=== PATIENT | male | born 1970 | race Hispanic/Latino ===

== ENCOUNTER 2023-04-19 13:02 | Inpatient (IN) | payer SELFPAY ==
[2023-04-18 20:00] VITALS: BP 152/96; PULSE 94; RESP 18; TEMP 98.4; O2SAT 100
[~2023-04-19] VITALS: Ht 172.7 cm; Wt 77.1 kg
[2023-04-19] MEDS ORDERED: KETOROLAC TROMETHAMINE 30 MG/ML VIAL IM STA (13:23)
[2023-04-19] MEDS ORDERED: Vancomycin IV 1 GM in SODIUM CHLORIDE 0.9% 250ML 250 ML IV ONE (13:30)
[2023-04-19] MEDS ORDERED: ACETAMINOPHEN 1000 MG/100 ML IV STA (13:35)
[2023-04-19] MEDS ORDERED: LACTATED RINGER'S 1,000 ML INJ ONE ×2 (13:45→15:15)
[2023-04-19] MEDS ORDERED: PIPERACILLIN/TAZOBACTAM 4.5 GM in SODIUM CHLORIDE 0.9% 100 ML IV ONE (13:45)
[2023-04-19 13:53] LABS: BASOPHILS % 0.2 % (0.0-1.0); EOSINOPHILS % 0.1 % (0.0-6.0); HEMATOCRIT 39.2 % (38.2-49.6); LYMPHOCYTES # (AUTO) 1.1 (1.0-3.2); LYMPHOCYTES % 6.8 % (18.0-39.1); MEAN CORPUSCULAR HEMOGLOBIN 32.7 pg (28-32); MEAN CORPUSCULAR HGB CONC 35.7 g/dL (31-35); MEAN CORPUSCULAR VOLUME 91.6 fL (81-99); NEUTROPHILS # (AUTO) 14.5 (2.1-6.9); NEUTROPHILS % 86.4 % (38.7-80.0); PLATELET COUNT 355 x10e3/uL (140-360); RED BLOOD COUNT 4.28 x10e6/uL (4.3-5.7); RED CELL DISTRIBUTION WIDTH 11.6 % (11.7-14.4)
[2023-04-19 14:10] LABS: ALBUMIN 2.8 g/dL (3.5-5.0); ALBUMIN/GLOBULIN RATIO 0.5 (0.8-2.0); CREATININE, SERUM 0.83 mg/dL (0.72-1.25); TOTAL PROTEIN 8.1 g/dL (6.5-8.1)
[2023-04-19] MEDS ORDERED: INSULIN REGULAR, HUMAN 100 UNIT/1 ML IV ONE (15:00)
[2023-04-19] MEDS ORDERED: ONDANSETRON HCL INJ 2MG/ML 2ML 2 MG/ML VIAL IV PRN (15:15)
[2023-04-19] MEDS ORDERED: SODIUM CHLORIDE 0.9% 1000ML 1,000 ML IV SCH (15:15)
[2023-04-19 16:15] VITALS: BP 129/81; PULSE 102; RESP 19; TEMP 99.7; O2SAT 98
[2023-04-19 16:19] VITALS: PULSE 85; RESP 20; O2SAT 98
[2023-04-19 16:23] LABS: CHOL/HDL RATIO 3.6 (3.9-4.7)
[2023-04-19 17:27] VITALS: BP 129/81; PULSE 85; RESP 20; TEMP 99.7; O2SAT 98
[2023-04-19 19:14] VITALS: PULSE 90; RESP 18; O2SAT 97
[2023-04-19 20:00] VITALS: BP 152/96; PULSE 94; RESP 18; TEMP 98.4; O2SAT 100
[2023-04-19] MEDS ORDERED: INSULIN LISPRO 100 UNIT/1 ML 3ML VIAL SQ SCH (21:00)
[2023-04-19] MEDS ORDERED: TETANUS/DIPHTHERIA TOX ADULT 0.5 ML SYR IM ONE (21:00)
[2023-04-19] MEDS ORDERED: DEXTROSE 50% SYRINGE 50 ML IV PRN (21:00)
[2023-04-19] MEDS: SODIUM CHLORIDE 0.9% 1000ML 1,000 ML IV SCH (21:36)
[2023-04-19] MEDS: KETOROLAC TROMETHAMINE 30 MG/ML VIAL IV PRN (21:37)
[2023-04-20] VITALS (9 sets, daily range): BP systolic 123–157; BP diastolic 69–91; PULSE 69–101; RESP 18–20; TEMP 97.7–100.5; O2SAT 94–98
[2023-04-20] MEDS: SODIUM CHLORIDE 0.9% 1000ML 1,000 ML IV SCH ×4 (02:41→21:17)
[2023-04-20 05:40] LABS: BASOPHILS % 0.3 % (0.0-1.0); EOSINOPHILS % 0.1 % (0.0-6.0); HEMATOCRIT 35.5 % (38.2-49.6); HEMOGLOBIN 12.5 g/dL (14.0-18.0); LYMPHOCYTES # (AUTO) 1.8 (1.0-3.2); LYMPHOCYTES % 11.8 % (18.0-39.1); MEAN CORPUSCULAR HEMOGLOBIN 32.3 pg (28-32); MEAN CORPUSCULAR HGB CONC 35.2 g/dL (31-35); MEAN CORPUSCULAR VOLUME 91.7 fL (81-99); MONOCYTES # (AUTO) 1.5 (0.2-0.8); MONOCYTES % 9.8 % (4.4-11.3); NEUTROPHILS # (AUTO) 11.6 (2.1-6.9); NEUTROPHILS % 77.4 % (38.7-80.0); PLATELET COUNT 326 x10e3/uL (140-360); RED BLOOD COUNT 3.87 x10e6/uL (4.3-5.7); RED CELL DISTRIBUTION WIDTH 11.2 % (11.7-14.4); WHITE BLOOD COUNT 15.03 x10e3/uL (4.8-10.8)
[2023-04-20] MEDS: Vancomycin IV 1 GM in SODIUM CHLORIDE 0.9% 250ML 250 ML IV SCH ×2 (05:48→16:53)
[2023-04-20 05:51] LABS: ALBUMIN 2.5 g/dL (3.5-5.0); ALBUMIN/GLOBULIN RATIO 0.6 (0.8-2.0); ANION GAP 14.5 mmol/L (8-16); BILIRUBIN,TOTAL 0.7 mg/dL (0.2-1.2); CALCIUM 8.3 mg/dL (8.4-10.2); CREATININE, SERUM 0.65 mg/dL (0.72-1.25); POTASSIUM 3.5 mmol/L (3.5-5.1); TOTAL PROTEIN 6.8 g/dL (6.5-8.1)
[2023-04-20] MEDS ORDERED: DEXTROSE 50% SYRINGE 50 ML IV PRN (08:00)
[2023-04-20] MEDS ORDERED: ACETAMINOPHEN 325 MG TAB PO PRN (09:00)
[2023-04-20] MEDS ORDERED: IOPAMIDOL 370 MG/ML 100 ML INFUS..BTL INJ ONE (09:19)
[2023-04-20] MEDS: INSULIN LISPRO 100 UNIT/1 ML 3ML VIAL SQ SCH ×2 (11:30→16:54)
[2023-04-20] MEDS: KETOROLAC TROMETHAMINE 30 MG/ML VIAL IV PRN (14:18)
[2023-04-20] MEDS ORDERED: INSULIN GLARGINE 100 UNITS/ML VIAL SQ SCH (21:00)
[2023-04-20] MEDS: CLINDAMYCIN HCL 150 MG CAP PO SCH (21:15)
[2023-04-20] MEDS: ATORVASTATIN 40 MG TAB PO SCH (21:16)
[2023-04-21] VITALS (7 sets, daily range): BP systolic 134–145; BP diastolic 82–92; PULSE 86–109; RESP 18–19; TEMP 98.4–99.8; O2SAT 95–100
[2023-04-21] MEDS: KETOROLAC TROMETHAMINE 30 MG/ML VIAL IV PRN ×3 (00:34→17:31)
[2023-04-21 05:59] LABS: BASOPHILS % 0.2 % (0.0-1.0); EOSINOPHILS # (AUTO) 0.1 (0.0-0.4); EOSINOPHILS % 0.4 % (0.0-6.0); HEMOGLOBIN 12.3 g/dL (14.0-18.0); LYMPHOCYTES # (AUTO) 1.9 (1.0-3.2); LYMPHOCYTES % 14.1 % (18.0-39.1); MEAN CORPUSCULAR HEMOGLOBIN 32.3 pg (28-32); MEAN CORPUSCULAR HGB CONC 35.1 g/dL (31-35); MEAN CORPUSCULAR VOLUME 91.9 fL (81-99); MONOCYTES # (AUTO) 1.3 (0.2-0.8); MONOCYTES % 9.5 % (4.4-11.3); NEUTROPHILS # (AUTO) 10.2 (2.1-6.9); NEUTROPHILS % 75.1 % (38.7-80.0); PLATELET COUNT 344 x10e3/uL (140-360); RED BLOOD COUNT 3.81 x10e6/uL (4.3-5.7); RED CELL DISTRIBUTION WIDTH 11.3 % (11.7-14.4); WHITE BLOOD COUNT 13.59 x10e3/uL (4.8-10.8)
[2023-04-21] MEDS: CLINDAMYCIN HCL 150 MG CAP PO SCH ×3 (06:34→21:48)
[2023-04-21 07:17] LABS: ALBUMIN 2.3 g/dL (3.5-5.0); ALBUMIN/GLOBULIN RATIO 0.5 (0.8-2.0); ANION GAP 13.3 mmol/L (8-16); BILIRUBIN,TOTAL 0.6 mg/dL (0.2-1.2); CALCIUM 8.3 mg/dL (8.4-10.2); CREATININE, SERUM 0.61 mg/dL (0.72-1.25); POTASSIUM 3.3 mmol/L (3.5-5.1); TOTAL PROTEIN 6.7 g/dL (6.5-8.1)
[2023-04-21] MEDS: INSULIN LISPRO 100 UNIT/1 ML 3ML VIAL SQ SCH ×3 (07:30→15:28)
[2023-04-21] MEDS ORDERED: POTASSIUM CHLORIDE 20 MEQ TAB CR PO ONE (08:30)
[2023-04-21] MEDS: Vancomycin IV 1 GM in SODIUM CHLORIDE 0.9% 250ML 250 ML IV SCH (10:09)
[2023-04-21] MEDS ORDERED: Vancomycin IV 1 GM in SODIUM CHLORIDE 0.9% 250ML 250 ML IV SCH (12:00)
[2023-04-21] MEDS ORDERED: ONDANSETRON HCL INJ 2MG/ML 2ML 2 MG/ML VIAL ONE (12:29)
[2023-04-21] MEDS ORDERED: DEXAMETHASONE SOD PHOS INJ 4 MG/ML SDV ONE (12:29)
[2023-04-21] MEDS ORDERED: LIDOCAINE HCL 2% LOCAL INJ 5 ML SDV VIAL INJ ONE (12:29)
[2023-04-21] MEDS ORDERED: PROPOFOL IV EMULSION 10 MG/ML 20 ML VIAL ONE (12:29)
[2023-04-21] MEDS ORDERED: SEVOFLURANE INHAL SOLN 250 ML PEN BTL ONE (12:29)
[2023-04-21] MEDS ORDERED: MIDAZOLAM HCL 2 MG/2 ML VIAL ONE (14:56)
[2023-04-21] MEDS ORDERED: FENTANYL CITRATE/PF 100MCG/2 ML INJ ONE (14:56)
[2023-04-21] MEDS ORDERED: BUPIVACAINE HCL 0.5% INJ 30 ML VIAL INJ ONE (15:45)
[2023-04-21] MEDS ORDERED: MUPIROCIN 2% OINT 22 GM TUBE ONE (15:45)
[2023-04-21] MEDS ORDERED: LIDOCAINE 1% W/EPINEPHRINE 20 ML VIAL ONE (15:45)
[2023-04-21] MEDS ORDERED: ACETAMINOPHEN 1000 MG/100 ML 100 ML IV ONE (17:09)
[2023-04-21] MEDS: SENNA-S TABLET PO SCH (17:32)
[2023-04-21] MEDS: LOSARTAN POTASSIUM 25 MG TAB PO SCH (17:33)
[2023-04-21] MEDS: ATORVASTATIN 40 MG TAB PO SCH (20:14)
[2023-04-21] MEDS ORDERED: SODIUM CHLORIDE 0.9% 250ML 250 ML ONE (20:20)
[2023-04-21] MEDS ORDERED: INSULIN GLARGINE 100 UNITS/ML VIAL SQ SCH (21:00)
[2023-04-21] MEDS: VANCOMYCIN 1.5 GM/300 ML 300 ML IV SCH (21:48)
[2023-04-22] VITALS (7 sets, daily range): BP systolic 133–158; BP diastolic 84–101; PULSE 73–87; RESP 17–20; TEMP 97.6–98.8; O2SAT 96–100
[2023-04-22 05:27] LABS: BASOPHILS % 0.1 % (0.0-1.0); HEMOGLOBIN 12.6 g/dL (14.0-18.0); LYMPHOCYTES # (AUTO) 1.1 (1.0-3.2); LYMPHOCYTES % 7.4 % (18.0-39.1); MEAN CORPUSCULAR HEMOGLOBIN 32.2 pg (28-32); MEAN CORPUSCULAR VOLUME 92.1 fL (81-99); MONOCYTES # (AUTO) 0.6 (0.2-0.8); MONOCYTES % 4.5 % (4.4-11.3); NEUTROPHILS # (AUTO) 12.3 (2.1-6.9); NEUTROPHILS % 87.1 % (38.7-80.0); PLATELET COUNT 421 x10e3/uL (140-360); RED BLOOD COUNT 3.91 x10e6/uL (4.3-5.7); RED CELL DISTRIBUTION WIDTH 11.3 % (11.7-14.4); WHITE BLOOD COUNT 14.17 x10e3/uL (4.8-10.8)
[2023-04-22 05:48] LABS: ALBUMIN 2.5 g/dL (3.5-5.0); ALBUMIN/GLOBULIN RATIO 0.5 (0.8-2.0); BILIRUBIN,TOTAL 0.6 mg/dL (0.2-1.2); CALCIUM 8.8 mg/dL (8.4-10.2); CREATININE, SERUM 0.67 mg/dL (0.72-1.25); TOTAL PROTEIN 7.5 g/dL (6.5-8.1)
[2023-04-22] MEDS: CLINDAMYCIN HCL 150 MG CAP PO SCH ×3 (05:48→23:46)
[2023-04-22] MEDS ORDERED: ONDANSETRON HCL 4 MG ORAL DISINTEGRATING TAB PO PRN (08:00)
[2023-04-22] MEDS ORDERED: MUPIROCIN 2% OINT 22 GM TUBE TOP PRN (08:00)
[2023-04-22] MEDS: VANCOMYCIN 1.5 GM/300 ML 300 ML IV SCH ×2 (08:41→23:30)
[2023-04-22] MEDS: LOSARTAN POTASSIUM 25 MG TAB PO SCH (08:41)
[2023-04-22] MEDS: INSULIN LISPRO 100 UNIT/1 ML 3ML VIAL SQ SCH ×5 (08:42→17:05)
[2023-04-22] MEDS: SENNA-S TABLET PO SCH (08:50)
[2023-04-22] MEDS: KETOROLAC TROMETHAMINE 30 MG/ML VIAL IV PRN ×2 (10:27→18:40)
[2023-04-22] MEDS: FAMOTIDINE 20 MG TAB PO SCH ×2 (10:33→17:04)
[2023-04-22] MEDS: ATORVASTATIN 40 MG TAB PO SCH (21:00)
[2023-04-22] MEDS: INSULIN GLARGINE 100 UNITS/ML VIAL SQ SCH (21:00)
[2023-04-23] MEDS: Morphine 4mg INJECTION 4 MG/ML INJ IV PRN ×2 (01:32→22:42)
[2023-04-23] MEDS: KETOROLAC TROMETHAMINE 30 MG/ML VIAL IV PRN ×2 (02:41→12:40)
[2023-04-23] MEDS: CLINDAMYCIN HCL 150 MG CAP PO SCH ×3 (06:01→20:33)
[2023-04-23 06:34] LABS: BASOPHILS # (AUTO) 0.1 (0.0-0.1); BASOPHILS % 0.4 % (0.0-1.0); EOSINOPHILS # (AUTO) 0.1 (0.0-0.4); EOSINOPHILS % 0.9 % (0.0-6.0); HEMOGLOBIN 12.6 g/dL (14.0-18.0); LYMPHOCYTES # (AUTO) 2.6 (1.0-3.2); LYMPHOCYTES % 21.4 % (18.0-39.1); MEAN CORPUSCULAR HEMOGLOBIN 31.9 pg (28-32); MEAN CORPUSCULAR VOLUME 91.1 fL (81-99); MONOCYTES # (AUTO) 1.4 (0.2-0.8); MONOCYTES % 11.7 % (4.4-11.3); NEUTROPHILS # (AUTO) 7.8 (2.1-6.9); NEUTROPHILS % 63.9 % (38.7-80.0); PLATELET COUNT 430 x10e3/uL (140-360); RED BLOOD COUNT 3.95 x10e6/uL (4.3-5.7); RED CELL DISTRIBUTION WIDTH 11.2 % (11.7-14.4)
[2023-04-23 06:56] LABS: ALBUMIN 2.4 g/dL (3.5-5.0); ALBUMIN/GLOBULIN RATIO 0.5 (0.8-2.0); ANION GAP 11.5 mmol/L (8-16); BILIRUBIN,TOTAL 0.5 mg/dL (0.2-1.2); CALCIUM 8.3 mg/dL (8.4-10.2); CREATININE, SERUM 0.64 mg/dL (0.72-1.25); POTASSIUM 3.5 mmol/L (3.5-5.1); TOTAL PROTEIN 6.9 g/dL (6.5-8.1)
[2023-04-23 07:19] VITALS: BP 133/93; PULSE 86; RESP 18; TEMP 97.5; O2SAT 100
[2023-04-23 08:22] VITALS: BP 128/95; PULSE 104; RESP 20; TEMP 97.7; O2SAT 100
[2023-04-23] MEDS: FAMOTIDINE 20 MG TAB PO SCH ×2 (08:26→16:59)
[2023-04-23] MEDS: LOSARTAN POTASSIUM 25 MG TAB PO SCH (08:27)
[2023-04-23] MEDS: VANCOMYCIN 1.5 GM/300 ML 300 ML IV SCH ×2 (08:28→20:32)
[2023-04-23] MEDS: INSULIN LISPRO 100 UNIT/1 ML 3ML VIAL SQ SCH ×6 (08:35→17:02)
[2023-04-23 08:39] VITALS: BP 128/95; PULSE 104; RESP 20; TEMP 97.7; O2SAT 100
[2023-04-23] MEDS: SENNA-S TABLET PO SCH (09:00)
[2023-04-23 11:25] VITALS: BP 134/85; PULSE 100; RESP 20; TEMP 97.9; O2SAT 100
[2023-04-23 16:03] VITALS: BP 133/80; PULSE 75; RESP 17; TEMP 98.8; O2SAT 99
[2023-04-23] MEDS: METFORMIN HCL 500 MG TAB CR PO SCH (16:58)
[2023-04-23 20:02] VITALS: BP 136/99; PULSE 105; RESP 20; TEMP 98.3; O2SAT 100
[2023-04-23] MEDS: ATORVASTATIN 40 MG TAB PO SCH (20:32)
[2023-04-23] MEDS: INSULIN GLARGINE 100 UNITS/ML VIAL SQ SCH (20:39)
[2023-04-24] VITALS (9 sets, daily range): BP systolic 135–146; BP diastolic 88–95; PULSE 85–107; RESP 18; TEMP 98–99.2; O2SAT 95–100
[2023-04-24] MEDS: KETOROLAC TROMETHAMINE 30 MG/ML VIAL IV PRN ×2 (01:50→12:36)
[2023-04-24] MEDS: CLINDAMYCIN HCL 150 MG CAP PO SCH (05:05)
[2023-04-24 05:38] LABS: BASOPHILS # (AUTO) 0.1 (0.0-0.1); BASOPHILS % 0.6 % (0.0-1.0); EOSINOPHILS # (AUTO) 0.2 (0.0-0.4); EOSINOPHILS % 1.7 % (0.0-6.0); HEMATOCRIT 39.8 % (38.2-49.6); HEMOGLOBIN 13.9 g/dL (14.0-18.0); LYMPHOCYTES # (AUTO) 2.7 (1.0-3.2); LYMPHOCYTES % 21.8 % (18.0-39.1); MEAN CORPUSCULAR HEMOGLOBIN 32.2 pg (28-32); MEAN CORPUSCULAR HGB CONC 34.9 g/dL (31-35); MEAN CORPUSCULAR VOLUME 92.1 fL (81-99); MONOCYTES # (AUTO) 1.3 (0.2-0.8); MONOCYTES % 10.9 % (4.4-11.3); NEUTROPHILS # (AUTO) 7.5 (2.1-6.9); NEUTROPHILS % 61.3 % (38.7-80.0); PLATELET COUNT 434 x10e3/uL (140-360); RED BLOOD COUNT 4.32 x10e6/uL (4.3-5.7); RED CELL DISTRIBUTION WIDTH 11.1 % (11.7-14.4); WHITE BLOOD COUNT 12.17 x10e3/uL (4.8-10.8)
[2023-04-24 06:16] LABS: ALBUMIN 2.6 g/dL (3.5-5.0); ALBUMIN/GLOBULIN RATIO 0.5 (0.8-2.0); ANION GAP 11.8 mmol/L (8-16); BILIRUBIN,TOTAL 0.4 mg/dL (0.2-1.2); CALCIUM 8.6 mg/dL (8.4-10.2); CREATININE, SERUM 0.7 mg/dL (0.72-1.25); POTASSIUM 3.8 mmol/L (3.5-5.1); TOTAL PROTEIN 7.5 g/dL (6.5-8.1)
[2023-04-24 06:29] LABS: INR 0.98; PROTHROMBIN TIME 13.2 seconds (11.9-14.5)
[2023-04-24] MEDS: VANCOMYCIN 1.5 GM/300 ML 300 ML IV SCH ×2 (08:55→21:28)
[2023-04-24] MEDS: METFORMIN HCL 500 MG TAB CR PO SCH ×2 (08:55→17:13)
[2023-04-24] MEDS: LOSARTAN POTASSIUM 25 MG TAB PO SCH (08:56)
[2023-04-24] MEDS: FAMOTIDINE 20 MG TAB PO SCH ×2 (08:56→16:51)
[2023-04-24] MEDS: SENNA-S TABLET PO SCH (09:00)
[2023-04-24] MEDS ORDERED: SODIUM CHLORIDE 0.9% 250ML 250 ML ONE (09:04)
[2023-04-24] MEDS: INSULIN LISPRO 100 UNIT/1 ML 3ML VIAL SQ SCH ×6 (09:05→16:57)
[2023-04-24] MEDS: INSULIN GLARGINE 100 UNITS/ML VIAL SQ SCH ×2 (09:12→21:41)
[2023-04-24] MEDS: CEFTRIAXONE 2 GM in SODIUM CHLORIDE 0.9% 100 ML IV SCH (12:46)
[2023-04-24] MEDS ORDERED: CLINDAMYCIN 600MG / 50ML 50 ML IV SCH (14:00)
[2023-04-24] MEDS ORDERED: Clindamycin INJ 150 MG/ML 600 MG Vial IM SCH (14:00)
[2023-04-24] MEDS ORDERED: ACETAMINOPHEN 325 MG TAB PO PRN (16:30)
[2023-04-24] MEDS: Morphine 4mg INJECTION 4 MG/ML INJ IV PRN (21:29)
[2023-04-24] MEDS: ATORVASTATIN 40 MG TAB PO SCH (21:29)
[2023-04-25] VITALS (11 sets, daily range): BP systolic 96–141; BP diastolic 71–92; PULSE 75–101; RESP 17–20; TEMP 97.7–98.8; O2SAT 97–100
[2023-04-25] MEDS: Morphine 4mg INJECTION 4 MG/ML INJ IV PRN ×5 (02:28→21:36)
[2023-04-25 05:23] LABS: BASOPHILS # (AUTO) 0.1 (0.0-0.1); BASOPHILS % 0.5 % (0.0-1.0); EOSINOPHILS # (AUTO) 0.3 (0.0-0.4); HEMATOCRIT 39.1 % (38.2-49.6); HEMOGLOBIN 13.6 g/dL (14.0-18.0); LYMPHOCYTES # (AUTO) 2.5 (1.0-3.2); LYMPHOCYTES % 19.6 % (18.0-39.1); MEAN CORPUSCULAR HEMOGLOBIN 31.6 pg (28-32); MEAN CORPUSCULAR HGB CONC 34.8 g/dL (31-35); MEAN CORPUSCULAR VOLUME 90.9 fL (81-99); MONOCYTES # (AUTO) 1.1 (0.2-0.8); MONOCYTES % 8.8 % (4.4-11.3); NEUTROPHILS # (AUTO) 8.4 (2.1-6.9); NEUTROPHILS % 65.1 % (38.7-80.0); PLATELET COUNT 463 x10e3/uL (140-360); RED CELL DISTRIBUTION WIDTH 11.3 % (11.7-14.4); WHITE BLOOD COUNT 12.85 x10e3/uL (4.8-10.8)
[2023-04-25 06:02] LABS: ALBUMIN 2.6 g/dL (3.5-5.0); ALBUMIN/GLOBULIN RATIO 0.5 (0.8-2.0); ANION GAP 12.7 mmol/L (8-16); BILIRUBIN,TOTAL 0.5 mg/dL (0.2-1.2); CALCIUM 8.5 mg/dL (8.4-10.2); CREATININE, SERUM 0.61 mg/dL (0.72-1.25); POTASSIUM 3.7 mmol/L (3.5-5.1); TOTAL PROTEIN 7.5 g/dL (6.5-8.1)
[2023-04-25] MEDS: INSULIN LISPRO 100 UNIT/1 ML 3ML VIAL SQ SCH ×6 (07:30→17:27)
[2023-04-25] MEDS ORDERED: CEPHALEXIN500 M1 PO (08:53)
[2023-04-25] MEDS: SENNA-S TABLET PO SCH (08:59)
[2023-04-25] MEDS: FAMOTIDINE 20 MG TAB PO SCH ×2 (08:59→17:24)
[2023-04-25] MEDS: METFORMIN HCL 500 MG TAB CR PO SCH ×3 (08:59→17:24)
[2023-04-25] MEDS: LOSARTAN POTASSIUM 25 MG TAB PO SCH (09:01)
[2023-04-25] MEDS: INSULIN GLARGINE 100 UNITS/ML VIAL SQ SCH ×2 (09:10→21:34)
[2023-04-25] MEDS: VANCOMYCIN 1.5 GM/300 ML 300 ML IV SCH ×2 (11:18→21:25)
[2023-04-25] MEDS: CEFTRIAXONE 2 GM in SODIUM CHLORIDE 0.9% 100 ML IV SCH (14:14)
[2023-04-25] MEDS: ATORVASTATIN 40 MG TAB PO SCH (21:25)
[2023-04-26] VITALS (9 sets, daily range): BP systolic 114–133; BP diastolic 74–91; PULSE 90–108; RESP 18–21; TEMP 97.1–98.7; O2SAT 97–100
[2023-04-26 05:32] LABS: BASOPHILS # (AUTO) 0.1 (0.0-0.1); BASOPHILS % 0.7 % (0.0-1.0); EOSINOPHILS # (AUTO) 0.3 (0.0-0.4); EOSINOPHILS % 2.5 % (0.0-6.0); HEMATOCRIT 38.8 % (38.2-49.6); HEMOGLOBIN 13.7 g/dL (14.0-18.0); LYMPHOCYTES # (AUTO) 2.1 (1.0-3.2); MEAN CORPUSCULAR HEMOGLOBIN 32.1 pg (28-32); MEAN CORPUSCULAR HGB CONC 35.3 g/dL (31-35); MEAN CORPUSCULAR VOLUME 90.9 fL (81-99); MONOCYTES % 9.5 % (4.4-11.3); NEUTROPHILS # (AUTO) 6.7 (2.1-6.9); NEUTROPHILS % 63.1 % (38.7-80.0); PLATELET COUNT 486 x10e3/uL (140-360); RED BLOOD COUNT 4.27 x10e6/uL (4.3-5.7); RED CELL DISTRIBUTION WIDTH 11.1 % (11.7-14.4); WHITE BLOOD COUNT 10.67 x10e3/uL (4.8-10.8)
[2023-04-26 05:51] LABS: ALBUMIN 2.6 g/dL (3.5-5.0); ALBUMIN/GLOBULIN RATIO 0.5 (0.8-2.0); ANION GAP 14.7 mmol/L (8-16); BILIRUBIN,TOTAL 0.4 mg/dL (0.2-1.2); CALCIUM 9.1 mg/dL (8.4-10.2); CREATININE, SERUM 0.61 mg/dL (0.72-1.25); POTASSIUM 3.7 mmol/L (3.5-5.1); TOTAL PROTEIN 7.6 g/dL (6.5-8.1)
[2023-04-26] MEDS ORDERED: BUPIVACAINE HCL 0.5% INJ 30 ML VIAL INJ ONE (05:59)
[2023-04-26] MEDS ORDERED: MUPIROCIN 2% OINT 22 GM TUBE ONE (06:02)
[2023-04-26] MEDS: Morphine 4mg INJECTION 4 MG/ML INJ IV PRN ×2 (06:47→12:16)
[2023-04-26] MEDS: INSULIN LISPRO 100 UNIT/1 ML 3ML VIAL SQ SCH ×6 (07:30→16:30)
[2023-04-26] MEDS ORDERED: Morphine 2mg Syringe 2 MG/ML SYR ONE (11:10)
[2023-04-26] MEDS: VANCOMYCIN 1.5 GM/300 ML 300 ML IV SCH ×2 (12:25→21:48)
[2023-04-26] MEDS: SENNA-S TABLET PO SCH (12:25)
[2023-04-26] MEDS: FAMOTIDINE 20 MG TAB PO SCH ×2 (12:26→16:25)
[2023-04-26] MEDS: LOSARTAN POTASSIUM 25 MG TAB PO SCH (12:26)
[2023-04-26] MEDS: METFORMIN HCL 500 MG TAB CR PO SCH ×2 (12:26→16:25)
[2023-04-26] MEDS: CEFTRIAXONE 2 GM in SODIUM CHLORIDE 0.9% 100 ML IV SCH (12:27)
[2023-04-26] MEDS: INSULIN GLARGINE 100 UNITS/ML VIAL SQ SCH ×2 (12:28→20:46)
[2023-04-26] MEDS ORDERED: PROPOFOL IV EMULSION 10 MG/ML 20 ML VIAL ONE (13:16)
[2023-04-26] MEDS ORDERED: LIDOCAINE HCL 2% LOCAL INJ 5 ML SDV VIAL INJ ONE (13:16)
[2023-04-26] MEDS ORDERED: FENTANYL CITRATE/PF 100MCG/2 ML INJ ONE (14:03)
[2023-04-26] MEDS ORDERED: MIDAZOLAM HCL 2 MG/2 ML VIAL ONE (14:03)
[2023-04-26] MEDS: ATORVASTATIN 40 MG TAB PO SCH (21:48)
[2023-04-27] VITALS (10 sets, daily range): BP systolic 107–138; BP diastolic 72–97; PULSE 87–103; RESP 16–20; TEMP 97.9–98.3; O2SAT 98–100
[2023-04-27] MEDS: Morphine 4mg INJECTION 4 MG/ML INJ IV PRN ×3 (00:46→18:34)
[2023-04-27 05:43] LABS: BASOPHILS # (AUTO) 0.1 (0.0-0.1); BASOPHILS % 0.5 % (0.0-1.0); EOSINOPHILS # (AUTO) 0.4 (0.0-0.4); EOSINOPHILS % 2.8 % (0.0-6.0); HEMATOCRIT 40.2 % (38.2-49.6); HEMOGLOBIN 14.1 g/dL (14.0-18.0); LYMPHOCYTES # (AUTO) 2.6 (1.0-3.2); LYMPHOCYTES % 20.7 % (18.0-39.1); MEAN CORPUSCULAR HEMOGLOBIN 32.5 pg (28-32); MEAN CORPUSCULAR HGB CONC 35.1 g/dL (31-35); MEAN CORPUSCULAR VOLUME 92.6 fL (81-99); MONOCYTES % 7.9 % (4.4-11.3); NEUTROPHILS % 64.6 % (38.7-80.0); PLATELET COUNT 512 x10e3/uL (140-360); RED BLOOD COUNT 4.34 x10e6/uL (4.3-5.7); RED CELL DISTRIBUTION WIDTH 11.1 % (11.7-14.4); WHITE BLOOD COUNT 12.44 x10e3/uL (4.8-10.8)
[2023-04-27 06:12] LABS: ALBUMIN 2.6 g/dL (3.5-5.0); ALBUMIN/GLOBULIN RATIO 0.5 (0.8-2.0); ANION GAP 13.6 mmol/L (8-16); BILIRUBIN,TOTAL 0.4 mg/dL (0.2-1.2); CALCIUM 8.9 mg/dL (8.4-10.2); CREATININE, SERUM 0.71 mg/dL (0.72-1.25); POTASSIUM 3.6 mmol/L (3.5-5.1); TOTAL PROTEIN 7.6 g/dL (6.5-8.1)
[2023-04-27] MEDS: INSULIN LISPRO 100 UNIT/1 ML 3ML VIAL SQ SCH ×6 (07:30→16:30)
[2023-04-27] MEDS: INSULIN GLARGINE 100 UNITS/ML VIAL SQ SCH ×2 (09:00→20:13)
[2023-04-27] MEDS: SENNA-S TABLET PO SCH (09:00)
[2023-04-27] MEDS: METFORMIN HCL 500 MG TAB CR PO SCH ×3 (09:07→18:05)
[2023-04-27] MEDS: FAMOTIDINE 20 MG TAB PO SCH ×2 (09:08→17:57)
[2023-04-27] MEDS: LOSARTAN POTASSIUM 25 MG TAB PO SCH (09:08)
[2023-04-27] MEDS: VANCOMYCIN 1.5 GM/300 ML 300 ML IV SCH ×2 (09:19→20:14)
[2023-04-27] MEDS: CEFTRIAXONE 2 GM in SODIUM CHLORIDE 0.9% 100 ML IV SCH (12:01)
[2023-04-27] MEDS ORDERED: DIPHENHYDRAMINE HCL 25 MG CAP PO PRN (16:00)
[2023-04-27] MEDS ORDERED: CALAMINE LOTION 4 OZ BOTTLE TP PRN (16:00)
[2023-04-27] MEDS: ATORVASTATIN 40 MG TAB PO SCH (20:14)
[2023-04-27] MEDS ORDERED: INSULIN GLARGINE 100 UNITS/ML VIAL SQ SCH (21:00)
[2023-04-28 00:28] VITALS: BP 127/87; PULSE 95; RESP 17; TEMP 98.3; O2SAT 100
[2023-04-28] MEDS: Morphine 4mg INJECTION 4 MG/ML INJ IV PRN ×3 (00:35→13:40)
[2023-04-28 04:44] VITALS: BP 127/85; PULSE 86; RESP 17; TEMP 98; O2SAT 100
[2023-04-28 05:18] LABS: BASOPHILS # (AUTO) 0.1 (0.0-0.1); BASOPHILS % 0.6 % (0.0-1.0); EOSINOPHILS # (AUTO) 0.4 (0.0-0.4); EOSINOPHILS % 3.3 % (0.0-6.0); HEMATOCRIT 37.3 % (38.2-49.6); HEMOGLOBIN 12.7 g/dL (14.0-18.0); LYMPHOCYTES # (AUTO) 2.8 (1.0-3.2); LYMPHOCYTES % 26.1 % (18.0-39.1); MEAN CORPUSCULAR HEMOGLOBIN 31.4 pg (28-32); MEAN CORPUSCULAR VOLUME 92.1 fL (81-99); MONOCYTES # (AUTO) 1.1 (0.2-0.8); NEUTROPHILS # (AUTO) 6.2 (2.1-6.9); NEUTROPHILS % 57.5 % (38.7-80.0); PLATELET COUNT 498 x10e3/uL (140-360); RED BLOOD COUNT 4.05 x10e6/uL (4.3-5.7); RED CELL DISTRIBUTION WIDTH 11.1 % (11.7-14.4); WHITE BLOOD COUNT 10.79 x10e3/uL (4.8-10.8)
[2023-04-28 05:51] LABS: ALBUMIN 2.6 g/dL (3.5-5.0); ALBUMIN/GLOBULIN RATIO 0.5 (0.8-2.0); ANION GAP 13.8 mmol/L (8-16); BILIRUBIN,TOTAL 0.4 mg/dL (0.2-1.2); CALCIUM 8.9 mg/dL (8.4-10.2); CREATININE, SERUM 0.73 mg/dL (0.72-1.25); POTASSIUM 3.8 mmol/L (3.5-5.1); TOTAL PROTEIN 7.5 g/dL (6.5-8.1)
[2023-04-28 07:55] VITALS: PULSE 86; RESP 18; O2SAT 95
[2023-04-28 08:33] VITALS: BP 128/85; PULSE 94; RESP 14; TEMP 98; O2SAT 100
[2023-04-28] MEDS: SENNA-S TABLET PO SCH (09:00)
[2023-04-28] MEDS ORDERED: COZAAR25 MG PO (09:08)
[2023-04-28] MEDS ORDERED: ATORVASTATIN CA40 MG PO (09:08)
[2023-04-28] MEDS ORDERED: Metformin Hcl PO (09:08)
[2023-04-28] MEDS ORDERED: Insulin Glargine SQ (09:08)
[2023-04-28] MEDS: METFORMIN HCL 500 MG TAB CR PO SCH (09:24)
[2023-04-28] MEDS: FAMOTIDINE 20 MG TAB PO SCH (09:24)
[2023-04-28] MEDS: LOSARTAN POTASSIUM 25 MG TAB PO SCH (09:25)
[2023-04-28] MEDS ORDERED: HYDROCODON-ACE1 EA11 PO (09:25)
[2023-04-28] MEDS: INSULIN GLARGINE 100 UNITS/ML VIAL SQ SCH (09:28)
[2023-04-28] MEDS: VANCOMYCIN 1.5 GM/300 ML 300 ML IV SCH (09:29)
[2023-04-28 09:49] VITALS: BP 128/85; PULSE 94; RESP 14; TEMP 98; O2SAT 100
[2023-04-28] MEDS ORDERED: KEFLEX125 MG/5 M PO (11:08)
[2023-04-28] MEDS: CEFTRIAXONE 2 GM in SODIUM CHLORIDE 0.9% 100 ML IV SCH (11:28)
[2023-04-28 11:41] VITALS: BP 129/83; PULSE 89; RESP 12; TEMP 98.3; O2SAT 99
[2023-05-06] MEDS ORDERED: ZYVOX600 MG PO (13:16)
[2023-05-06] MEDS ORDERED: KETOROLAC TROME10 MG PO (14:06)
== END 2023-04-28 14:40 | disposition home or self-care (01) | DRG 854 ==
LOC: ER 13:18 → ERHOLD 15:07 → MED/SURG 16:10
PROVIDERS: ADMIT Family Medicine Adult Medicine; ATTEND Family Medicine Adult Medicine
PROC: 0KN80ZZ Release Left Upper Arm Muscle, Open Approach (ICD-10-PCS; principal; 2023-04-21 15:53)
PROC: 0X9H0ZZ Drainage of Left Wrist Region, Open Approach (ICD-10-PCS; 2023-04-26)
DX: A41.9 Sepsis, unspecified organism (principal); E87.1 Hypo-osmolality and hyponatremia; E87.20 Acidosis, unspecified; L03.114 Cellulitis of left upper limb; M79.A12 Nontraumatic compartment syndrome of left upper extremity; L02.414 Cutaneous abscess of left upper limb; D72.829 Elevated white blood cell count, unspecified; R79.89 Other specified abnormal findings of blood chemistry; M25.449 Effusion, unspecified hand; I10 Essential (primary) hypertension; M60.842 Other myositis, left hand; E11.65 Type 2 diabetes mellitus with hyperglycemia; M25.442 Effusion, left hand; F10.21 Alcohol dependence, in remission; Z20.822 Contact with and (suspected) exposure to COVID-19
CPT/HCPCS: 36415; 71046; 80053; 80061; 80202; 82948; 83036; 83605; 85025; 85610; 86140; 87040; 87071; 87075; 87205; 90714; 94799; 96372; 99284; J0696; J1100; J1815; J1885; J2001; J2250; J2270; J2405; J2543; J7030; J7050; Q0162; Q9967; U0002